=== PATIENT | female | born 1965 | race Hispanic/Latino ===

== ENCOUNTER 2022-06-06 19:00 | Inpatient (IN) | payer BC ==
[2022-06-06 19:34] LABS: #Eosinphils 0.1 thou/uL (0.0-0.7); #Lymphocytes 1.9 thou/uL (1.20-3.40); #Monocytes 0.6 thou/uL (0.11-0.59); #Neutrophils 9.8 thou/uL (1.40-6.50); %Basophils 0.3 % (0.0-1.0); %Eosinophils 0.9 % (0.0-10.0); %Lymphocytes 15.4 % (21.0-51.0); %Monocytes 5.1 % (0.0-10.0); %Neutrophils 78.3 % (42.0-75.0); Hemoglobin 13.1 g/dL (12.0-16.0); Mean Corpuscular HGB CONC 31.8 g/dL (32.0-36.0); Mean Corpuscular Hemoglobin 28.4 pg (27.0-31.0); Mean Corpuscular Volume 89.5 fL (78.0-98.0); Mean Platelet Volume 8.1 fL (7.4-10.4); Platelet Count 235 thou/uL (130-400); RBC Distribution Width 12.6 % (11.5-14.5); Red Blood Cell (RBC) Count 4.61 mill/uL (4.20-5.40); White Blood Cell (WBC) Count 12.5 thou/uL (4.8-10.8)
[2022-06-06 20:07] LABS: ALT (SGPT) 164 U/L (8-55); AST (SGOT) 249 U/L (5-34); Alkaline Phosphatase 126 U/L (40-110); Anion Gap 13 mmol/L (10-20); BUN (Urea Nitrogen) 10 mg/dL (9.8-20.1); Bilirubin, Total 1.6 mg/dL (0.2-1.2); Calc. Creatinine Clearance 0 mL/min (70-130); Calcium 9.1 mg/dL (7.8-10.44); Carbon Dioxide 25 mmol/L (22-29); Chloride 104 mmol/L (98-107); Estimated GFR 88; Globulin 3.2 g/dL (2.4-3.5); Glucose 138 mg/dL (70-105); Potassium 4.1 mmol/L (3.5-5.1); Protein, Total 7.2 g/dL (6.0-8.3); Sodium 138 mmol/L (136-145)
[2022-06-06] MEDS ORDERED: Piperacillin/Tazobactam 3.375 GM VIAL ONE (20:54)
[2022-06-06] MEDS ORDERED: Morphine 2 MG/ML VIAL SLOW IVP PRN ×2 (21:15→22:22)
[2022-06-06] MEDS ORDERED: Ondansetron ODT 4 MG TAB SL PRN (21:15)
[2022-06-06] MEDS ORDERED: Ondansetron PF 4 MG/2 ML Vial IVP PRN ×2 (21:15→22:22)
[2022-06-06 22:06] LABS: SARS-CoV-2 NAA Rapid Test Not Detected (NotDetected)
[2022-06-06] MEDS ORDERED: Morphine 4 MG/ML VIAL SLOW IVP PRN (22:22)
[2022-06-06] MEDS ORDERED: Ketorolac Tromethamine 30 MG/ML VIAL IVP PRN (22:22)
[2022-06-06] MEDS ORDERED: Promethazine HCl 25 MG/ML VIAL IM PRN (22:22)
[2022-06-06] MEDS ORDERED: Dextrose 50% Abboject 50 ML SYRINGE SLOW IVP PRN (22:22)
[2022-06-06] MEDS ORDERED: Mag-Al 1200 mg/1200 mg/30 ML UDCUP PO PRN (22:22)
[2022-06-06] MEDS ORDERED: Dextrose 5% in Water 1,000 ML IV PRN (22:22)
[2022-06-06] MEDS ORDERED: Calcium Carbonate 500 MG ChewTAB PO PRN (22:22)
[2022-06-06] MEDS ORDERED: hydrALAZINE 20 MG/ML VIAL SLOW IVP PRN (22:22)
[2022-06-06 22:28] VITALS: BMI 34.7
[2022-06-06] MEDS: Sodium Chloride 0.9% 1,000 ML IV SCH (22:32)
[2022-06-06] MEDS ORDERED: cefOXitin 2 GM in Sodium Chloride 0.9% 100 ML IVPB SCH (23:00)
[2022-06-06] MEDS: D5 1/2 NS w/20 mEq KCL 1,000 ML IV SCH (23:04)
[2022-06-07] MEDS: Sodium Chloride 0.9% 1,000 ML IV SCH (02:38)
[2022-06-07 05:57] LABS: #Eosinphils 0.1 thou/uL (0.0-0.7); #Lymphocytes 1.7 thou/uL (1.20-3.40); #Monocytes 0.9 thou/uL (0.11-0.59); #Neutrophils 13.9 thou/uL (1.40-6.50); %Eosinophils 0.3 % (0.0-10.0); %Lymphocytes 10.1 % (21.0-51.0); %Monocytes 5.5 % (0.0-10.0); %Neutrophils 84.1 % (42.0-75.0); Hemoglobin 13.1 g/dL (12.0-16.0); Mean Corpuscular HGB CONC 33.1 g/dL (32.0-36.0); Mean Corpuscular Hemoglobin 29.2 pg (27.0-31.0); Mean Corpuscular Volume 88.3 fL (78.0-98.0); Mean Platelet Volume 8.3 fL (7.4-10.4); Platelet Count 204 thou/uL (130-400); RBC Distribution Width 12.5 % (11.5-14.5); White Blood Cell (WBC) Count 16.5 thou/uL (4.8-10.8)
[2022-06-07 06:57] LABS: ALT (SGPT) 321 U/L (8-55); AST (SGOT) 341 U/L (5-34); Alkaline Phosphatase 146 U/L (40-110); Anion Gap 14 mmol/L (10-20); BUN (Urea Nitrogen) 9 mg/dL (9.8-20.1); Bilirubin, Total 3.9 mg/dL (0.2-1.2); Calc. Creatinine Clearance 102 mL/min (70-130); Carbon Dioxide 27 mmol/L (22-29); Chloride 101 mmol/L (98-107); Estimated GFR 81; Globulin 3.2 g/dL (2.4-3.5); Glucose 169 mg/dL (70-105); Lipase 17 U/L (8-78); Potassium 4.2 mmol/L (3.5-5.1); Protein, Total 7.2 g/dL (6.0-8.3); Sodium 138 mmol/L (136-145)
[2022-06-07] MEDS: D5 1/2 NS w/20 mEq KCL 1,000 ML IV SCH ×3 (09:09→23:16)
[2022-06-07] MEDS: cefOXitin 2 GM in Sodium Chloride 0.9% 100 ML IVPB SCH ×3 (09:12→23:16)
[2022-06-07] MEDS: Famotidine/PF 20 mg/2ml Vial SLOW IVP SCH ×2 (09:13→20:25)
[2022-06-07] MEDS: Famotidine 20 MG TAB PO SCH ×2 (09:16→20:22)
[2022-06-07] MEDS ORDERED: Iopamidol 30 ML ONE (14:43)
[2022-06-07] MEDS ORDERED: Indomethacin 50 MG SUPP ONE (14:44)
[2022-06-07] MEDS ORDERED: fentaNYL Citrate/PF 100 MCG/2 ML SYRINGE ONE (15:01)
[2022-06-07] MEDS ORDERED: Ondansetron PF 4 MG/2 ML Vial ONE (15:03)
[2022-06-07] MEDS ORDERED: ePHEDrine 50 MG/ML VIAL ONE (15:03)
[2022-06-07] MEDS ORDERED: Rocuronium Bromide 10 MG/ML (10ML VIAL) ONE (15:03)
[2022-06-07] MEDS ORDERED: Lidocaine 1% PF 5 ML VIAL ONE (15:03)
[2022-06-07] MEDS ORDERED: Glycopyrrolate 0.2 MG/ML 5 ML SYRINGE ONE (15:03)
[2022-06-07] MEDS ORDERED: Dexamethasone 20 MG/5 ML VIAL ONE (15:03)
[2022-06-07] MEDS ORDERED: Ketorolac Tromethamine 30 MG/ML VIAL ONE (15:03)
[2022-06-07] MEDS ORDERED: PROPOFOL 200 MG/20 ML VIAL ONE (15:03)
[2022-06-07] MEDS ORDERED: Ondansetron HCl/PF 4 MG/2 ML Vial IVP PRN (15:28)
[2022-06-07] MEDS ORDERED: Promethazine HCl 25 MG/ML VIAL IVPB PRN (15:28)
[2022-06-07] MEDS ORDERED: Promethazine HCl 25 MG/ML VIAL IM PRN (15:28)
[2022-06-08] MEDS ORDERED: cefOXitin 2 GM VIAL ONE (08:50)
[2022-06-08] MEDS ORDERED: Sodium Chloride 0.9% 100 ML ONE (08:51)
[2022-06-08] MEDS ORDERED: Bupivacaine 0.25% HCL 30 ML VIAL ONE (09:37)
[2022-06-08] MEDS ORDERED: Lidocaine 1% w/Epinephrine 1:100K 20 ML VIAL ONE (09:37)
[2022-06-08] MEDS ORDERED: fentaNYL Citrate/PF 100 MCG/2 ML SYRINGE ONE (09:41)
[2022-06-08] MEDS ORDERED: Rocuronium Bromide 10 MG/ML (10ML VIAL) ONE (10:04)
[2022-06-08] MEDS ORDERED: Dexamethasone 20 MG/5 ML VIAL ONE (10:04)
[2022-06-08] MEDS ORDERED: Glycopyrrolate 0.2 MG/ML 5 ML SYRINGE ONE (10:04)
[2022-06-08] MEDS ORDERED: Ondansetron PF 4 MG/2 ML Vial ONE (10:04)
[2022-06-08] MEDS ORDERED: Lidocaine 1% PF 5 ML VIAL ONE (10:04)
[2022-06-08] MEDS ORDERED: PROPOFOL 200 MG/20 ML VIAL ONE (10:04)
[2022-06-08] MEDS ORDERED: HYDROcodone/Acetaminophen 7.5/325 mg Tablet PO PRN (10:33)
[2022-06-08] MEDS ORDERED: SUGAMMADEX SODIUM 200 MG/2 ML VIAL ONE (10:44)
[2022-06-08] MEDS ORDERED: Fentanyl 100 MCG/2 ML VIAL ONE (11:06)
[2022-06-08 12:43] VITALS: BP 132/73; TEMP 97.8
== END 2022-06-08 14:25 | disposition home or self-care (01) | DRG 419 ==
LOC: ERS 19:00 → SURG B 21:11 → OBSVTOIN 21:11
PROVIDERS: ADMIT Surgery; ATTEND Surgery
PROC: 0F798ZZ Dilation of Common Bile Duct, Via Natural or Artificial Opening Endoscopic (ICD-10-PCS; 2022-06-06)
PROC: 0FT44ZZ Resection of Gallbladder, Percutaneous Endoscopic Approach (ICD-10-PCS; principal; 2022-06-08)
DX: K80.42 Calculus of bile duct with acute cholecystitis without obstruction (principal); E11.9 Type 2 diabetes mellitus without complications; E03.9 Hypothyroidism, unspecified; E78.5 Hyperlipidemia, unspecified; Z88.2 Allergy status to sulfonamides; Z88.1 Allergy status to other antibiotic agents; Z79.890 Hormone replacement therapy; Z79.84 Long term (current) use of oral hypoglycemic drugs; Z79.899 Other long term (current) drug therapy
CPT/HCPCS: 36415; 74330; 76705; 80053; 82150; 83690; 85025; 88304; 96365; C1713; C1725; G0378; J0694; J1100; J1610; J1885; J2270; J2405; J2543; J2704; J2710; J3010; J3480; J3490; Q9967; S0020; S0028; U0002